=== PATIENT | male | born 1970 | race Caucasian/White ===

== ENCOUNTER 2017-11-07 07:44 | Emergency (ER) | payer OTHER ==
[2017-11-07] MEDS ORDERED: Fluorescein Opthalmic Strip ONE (08:23)
[2017-11-07] MEDS ORDERED: Proparacaine 0.5% Opth 15 ML BOT ONE (08:23)
== END 2017-11-07 09:18 | disposition home or self-care (01) ==
LOC: ERS 07:44
DX: S05.02XA Injury of conjunctiva and corneal abrasion without foreign body, left eye, initial encounter (principal); H20.9 Unspecified iridocyclitis; I10 Essential (primary) hypertension; Z79.899 Other long term (current) drug therapy; W22.8XXA Striking against or struck by other objects, initial encounter
CPT/HCPCS: 99282